=== PATIENT | male | born 1985 ===

== ENCOUNTER → 2017-04-20 | Outpatient (CLI) | payer OTHER ==
--- NOTE | 2017-04-20 20:47 | CONS ---
CONSULTATION DATE OF SERVICE: 04/20/2017 32-year-old gentleman has been evaluated in [facility] for obstructive sleep apnea- hypopnea syndrome. HISTORY OF PRESENT ILLNESS SLEEP WAKE EVALUATION: SLEEP SCHEDULE: Patient usual sleep schedule on working days from around 11 to 12 midnight until 6 to 7:00 a.m. and on weekends from around midnight 1:00 a.m. until 7 or 8 a.m. FALLING ASLEEP: Sometimes he has problem with falling asleep. He has TV set in bedroom. DURING SLEEP: Usually sleeps on the back or side position. According to his he has loud snoring and witnessed episodes of stopped breathing during the sleep. DURING THE DAY/SLEEP WAKE EVALUATION: Patient wakes up from sleep up to 3 times with up to 3 episodes of nocturia at night. She mentioned that he has also choking noises during the sleep and episodes of gasping for air. Gary Sleepiness Scale is 5. PAST MEDICAL HISTORY: Practically none. PAST SURGICAL HISTORY: Right hand stitches many years ago. MEDICATIONS: None. SOCIAL HISTORY: Positive for occasional smoking cigars. Alcohol consumption a few drinks a week. REVIEW OF SYSTEMS: Awakenings from sleep. FAMILY HISTORY: Snoring, cancer with colon cancer, lymphoma, insomnia, diabetes, acid reflux, restless legs. PHYSICAL EXAM: A 32-year-old gentleman without distress BP 152/68, HR 74, RR 16, height 6 feet 0 and a half, weight 344, BMI 43, temperature 98.1. Oxygen saturation: 97%. Oropharynx extremely low position of soft palate. Mallampati 4. Neck wide, 17.5 inches in circumference. ABDOMEN: Obese. Neck Supple, no JVD. Thyroid is not palpable. LUNGS Clear to percussion and to auscultation. Good air exchange. No wheezing or rhonchi. HEART S1, S2 regular. No murmurs, gallops, or rubs. ABDOMEN: Obese. Soft and nontender. Bowel sounds are present. No organomegaly appreciated. EXTREMITIES No clubbing or cyanosis. [employer] Awake, alert, and oriented X3. Cranial nerves 2 to 7 intact. There is no fasciculation or atrophy. noted. No focal deficits observed. IMPRESSION: 1. Snoring, witnessed episodes of stopped breathing during the sleep, extremely low position of soft palate. Some restriction of nasal breathing. Obstructive sleep apnea-hypopnea syndrome. 2. Restriction of nasal breathing on the left, most on the left side. 3. Obesity, BMI 43. 4. Hypertension in the office. PLAN: 1. Polysomnography for evaluation of patient's breathing during sleep. 2. CPAP/BiPAP titration if sleep study confirms obstructive sleep apnea-hypopnea syndrome. 3. Preferable position during sleep on the side. 4. No driving if patient feels any sleepiness. Patient is aware of civil and criminal liability for unsafe driving. 5. I will see patient for follow up visit to explain results of testing and following plan. Thank you very much for referring this patient for consultation. Sincerely, Eris Ferrera MD, PhD, FAASM Diplomat of [employer] Management [employer] [facility] [place] MMODL / JIMMIEN: [id number] /
== END | disposition home or self-care (01) ==
LOC: SLEEP 16:26
PROVIDERS: ATTEND Internal Medicine
DX: Z53.9 Procedure and treatment not carried out, unspecified reason (principal)

== ENCOUNTER → 2017-07-13 | Outpatient (CLI) | payer OTHER ==
--- NOTE | 2017-07-13 17:50 | PN ---
PROGRESS NOTE DATE OF SERVICE: 07/13/2017. 32-year-old gentleman has been followed in [facility] Center to discuss results of the sleep study and following plan. I discussed results of polysomnogram with the patient in detail. Sleep study showed only apnea-hypopnea index 5.2 for the whole night and in REM sleep, although it was increased to 31.3. Lowest oxygen was below normal only for 1.4 minutes which is acceptable. No significant periodic limb movements have been documented. The patient recently sleeps better, sleeps through the night and does not experience significant sleepiness during the day. Briggs Sleepiness Scale is 3. MEDICATIONS: None. PHYSICAL EXAM: Patient in no distress. BP 144/75, HR 65, temperature 98.4, respiratory rate 18, oxygen saturation on room air 96%, weight 355.2 pounds. Oropharynx moderately low position of soft palate. ABDOMEN: Obese. Neck Supple, no JVD. Thyroid is not palpable. LUNGS Clear to percussion and to auscultation. Good air exchange. No wheezing or rhonchi. HEART S1, S2 regular. No murmurs, gallops, or rubs. ABDOMEN: Obese. Soft and nontender. Bowel sounds are present. No organomegaly appreciated. EXTREMITIES No clubbing or cyanosis. [employer] Awake, alert, and oriented X3. Cranial nerves 2 to 7 intact. There is no fasciculation or atrophy. noted. No focal deficits observed. IMPRESSION: 1. Very mild abnormalities of respiration. Apnea-hypopnea index 5.2. Presently, patient does not experience symptoms of significant excessive daytime sleepiness and able to sleep through the night. 2. Obesity. 3. Borderline blood pressure. 4. Some restriction of nasal breathing. PLAN: 1. The patient will try to do his best to lose weight. 2. Preferable position during the sleep on the side and slightly up. 3. Sleep hygiene with regular time bed for at least 7 and 1/2 hours. 4. No driving if feels any sleepiness. 5. Followup visit in 1 year or earlier if patient has any problems. Thank you very much for allowing me to participate in management of your patient. Sincerely, Eris Ferrera MD, PhD, FAASM Diplomat of [employer] [employer] Cinder Pitman [facility] [place] MMODL / IJN: [id number] /
== END | disposition home or self-care (01) ==
LOC: SLEEP 16:29
PROVIDERS: ATTEND Internal Medicine
DX: G47.30 Sleep apnea, unspecified (principal); E66.9 Obesity, unspecified; R03.0 Elevated blood-pressure reading, without diagnosis of hypertension; J34.89 Other specified disorders of nose and nasal sinuses